=== PATIENT | female | born 1935 | race Caucasian/White ===

== ENCOUNTER 2022-04-03 07:29 | Day surgery (SDC) | payer OTHER ==
[2022-04-02 09:57] VITALS: BMI 22.8
[2022-04-03] MEDS ORDERED: ERYTHROMYCIN 0.5% OPHTHALMIC OINTMENT 3.5 GM TUBE ONE (09:26)
[2022-04-03] MEDS ORDERED: EPINEPHrine/PF 1 MG/1 ML (1:1,000) AMPULE ONE (09:26)
[2022-04-03] MEDS ORDERED: TETRACAINE 0.5% OPHTH SOLN 2 ML BOTTLE ONE (09:27)
[2022-04-03] MEDS ORDERED: BUPIVACAINE HCL 50 ML ONE (09:27)
[2022-04-03] MEDS ORDERED: POVIDONE-IODINE 5% OPHTHALMIC PREP 30 ML SOLUTION ONE (09:27)
[2022-04-03] MEDS ORDERED: LIDOCAINE HCL 1%, 10 MG/ML (20ML VIAL) ONE (09:27)
[2022-04-03] MEDS ORDERED: PROPOFOL 40 ML ONE (09:28)
[2022-04-03] MEDS ORDERED: MIDAZOLAM HCL 2 MG/2 ML SINGLE DOSE VIAL ONE (09:29)
[2022-04-03] MEDS ORDERED: ONDANSETRON 4 MG/2 ML VIAL IVPUSH PRN (10:53)
[2022-04-03] MEDS ORDERED: oxyCODONE HCL 5 MG TABLET PO PRN (10:53)
[2022-04-03] MEDS ORDERED: ACETAMINOPHEN 325 MG TABLET (FP) PO PRN (10:53)
[2022-04-03 12:04] VITALS: PULSE 68; RESP 18; TEMP 97.4
[2022-04-03 12:27] VITALS: BP 140/56
== END 2022-04-03 12:40 | disposition home or self-care (01) ==
LOC: FASU 07:29 → EDBD 09:00 → FASU 12:40
PROVIDERS: ATTEND Ophthalmology
PROC: 08SR0ZZ Reposition Left Lower Eyelid, Open Approach (ICD-10-PCS; principal; 2022-04-03 10:05)
DX: H02.005 Unspecified entropion of left lower eyelid (principal); H16.8 Other keratitis
CPT/HCPCS: 94760